=== PATIENT | male | born 1950 | race Caucasian/White ===

== ENCOUNTER 2018-01-29 09:28 | Outpatient (REF) | payer BC, SELFPAY ==
[2018-01-29 12:26] LABS: Cholesterol 136 mg/dL (50-200); HDL Cholesterol 59 mg/dL (40-60); LDL CHOLESTEROL 68 mg/dL (<100); Triglyceride 57 mg/dL (30-150)
[2018-01-30 12:04] LABS: Hepatitis C Ab w Rflx HCV PCR Negative (NEGAT)
== END 2018-01-29 09:48 ==
LOC: NCHCN 09:28
PROVIDERS: PCP Internal Medicine; Visit Provider Internal Medicine
DX: E78.5 Hyperlipidemia, unspecified (principal); Z11.59 Encounter for screening for other viral diseases
CPT/HCPCS: 80061; 83721; 86803

== ENCOUNTER 2019-10-06 10:59 | Outpatient (REF) | payer BC, SELFPAY ==
[2019-10-06 21:26] LABS: Anion Gap 10.8 mmol/L (3-11); BUN 14 mg/dL (7-18); CO2 26.2 mmol/L (21.0-32.0); CREATININE 0.87 mg/dL (0.70-1.30); Calcium 9.2 mg/dL (8.5-10.1); Calculated LDL 79 mg/dL (<100); Chloride 103 mmol/L (98-107); Cholesterol 144 mg/dL (<200); Glucose 102 mg/dL (74-106); HDL Cholesterol 50 mg/dL (40-60); Potassium 4.3 mmol/L (3.5-5.1); Sodium 140 mmol/L (136-145); Triglyceride 76 mg/dL (<150)
== END 2019-10-06 11:19 ==
LOC: NCHCN 10:59
PROVIDERS: PCP Internal Medicine; Visit Provider Internal Medicine
DX: E78.5 Hyperlipidemia, unspecified (principal); I10 Essential (primary) hypertension
CPT/HCPCS: 80048; 80061

== ENCOUNTER 2020-04-19 16:14 | Emergency (ER) | payer BC, SELFPAY ==
--- NOTE | 2020-04-19 16:15 | ED.GENADUL_ITS ---
Discharge Plan Disposition Patient Disposition: HOME Condition: Good Discharge Details Clinical Impression: Sensation of foreign body in esophagus Primary Care Provider: Bebeto Pineda ED Provider: Ann Marie Dasilva Home Meds and New Rx's Prescriptions: Continued lisinopril 5 MG tablet 5 mg PO DAILY RF: 0 rosuvastatin 10 mg tablet 10 mg PO DAILY RF: 0 Discharge Instructions Instructions: Esophageal Foreign Body (ED) Additional Instructions: Bone is not visualized on imaging today. This may be so small but are unable to visualize it. Alternatively, you may scratch the inside of your esophagus. General surgery would like you to gargle with salt water 5-6 times per day. They will also follow-up with you on at 3 PM to reassess. If in the interim you develop increased pain, inability to tolerate food or liquids, fever/chills or other new/worsening symptoms please seek care urgently once again. Referrals: Niharika Saenz DO [OSTEOPATHIC DOCTOR] - 04/21/20 3:00 pm Bebeto Pineda MD [Primary Care Provider] - Medical Decision Making Patient is a pleasant 61-year-old gentleman presenting today with chief complaint of esophageal foreign body. He reports that last night he was eating fish when he felt a bone get caught in his throat. States his been 24 hours since the onset of symptoms. States the symptoms have improved slightly since that time. He has been eating and drinking normally. States that he is been trying to have boluses of food as this was advised on the Internet including bread and marshmallows. States he does have some discomfort with swallowing but is able to do so without difficulty. Denies any shortness of breath or difficulty breathing. Has not had symptoms like this historically. On exam, patient appears nontoxic. He is notably hypertensive and tachycardic when he first came in, I believe that this is likely associate with anxiety based on the patient's exam. Handling secretions well. His lungs are clear. I not see any evidence of foreign body in the posterior oropharynx. Normal throat exam. Plan for x-ray as the patient reports that this was a piece of bone. However, like this is quite small given the type of fish. X-ray was reviewed by radiology. FINDINGS: Airway: There are multiple overlying shadows in the airway. It is difficult to rule out foreign body No abnormal narrowing. Soft tissues: Normal epiglottis. Bones/joints: Degenerative changes in the cervical spine IMPRESSION: There are multiple overlying shadows in the airway. It is difficult to rule out foreign body . Recommend CT soft tissue neck for further evaluation Consult with Dr. Lizama with general surgery. She advised that if the patient has been improving lately he has scratched his esophagus. She did review the images and also does not know any foreign body. She advised gargling with salt water 5-6 times per day. She schedule appointment for the patient on in follow-up. Discussed this plan with the patient who is in agreement. He was given strict return precautions. All of his questions and concerns were addressed with this plan. HPI General Mode of arrival: ambulatory . Date/Time Provider Initiated Documentation: 04/19/20 16:15 . Limitations to Documentation: no limitations . Information obtained by: patient and RN notes reviewed . History of Present Illness 69 year old M presents to the emergency department with the chief complaint of FB sensation in throat, described as mild, with intensity rated at 2. Quality is described as other (FB sensation), and is localized to the neck (left side of throat). Patient reports no radiation. Patient started experiencing this day(s) (1) and it has been constant. No relieving factors improve symptom(s), Eating worsens symptoms . Patient notes no other symptoms.. Patient did receive the following treatments prior to arrival, other (eating boluses of food) Related Data Home Medications Medication Instructions Recorded Confirmed lisinopril 5 mg PO DAILY tab-cap 02/03/15 04/19/20 rosuvastatin 10 mg PO DAILY 04/19/20 04/19/20 Allergies Allergy/AdvReac Type Severity Reaction Status Date / Time No Known Drug Allergies Allergy Unverified 04/19/20 16:19 Review of Systems Constitutional Constitutional: Reports as per HPI, Denies chills, Denies fever(s) and Denies headache(s) ENT Ears, Nose, Mouth, and Throat: Reports as per HPI and Denies headache(s) Cardiovascular Cardiovascular: Reports as per HPI, Denies chest pain and Denies dyspnea Respiratory Respiratory: Reports as per HPI, Denies cough, Denies hemoptysis, Denies dyspnea, Denies stridor and Denies wheezing Gastrointestinal Gastrointestinal: Reports as per HPI, Denies nausea and Denies vomiting Integumentary/Breasts Skin/Breast: Reports as per HPI and Denies rash Neurologic Neurologic: Reports as per HPI and Denies headache(s) Allergic/Immunologic Allergic/Immunologic: Denies wheezing [facility] Medical History (Updated 04/19/20 @ 17:29 by AVILA Quesada) Hypertension Surgical History Colonoscopy - IV Sedation (07/09/16) Social History Smoking/Tobacco Use Status: Current every day Tobacco Type: smokeless tobacco Smoking risk assessment performed?: Yes Drug use: Never Substance use type: does not use Exam Const General: cooperative, healthy appearing, comfortable, no acute distress, well developed and well groomed Nutritional Appearance: well nourished and overweight Orientation: alert and awake [facility] Head: normal to inspection, normocephalic and atraumatic General nose exam: external nose normal Face and sinus: normal facial exam, sinuses nontender and face symmetric Mouth: oral mucosae normal, lip normal, tongue normal, oropharynx normal and moist mucous membranes Teeth and gingiva: dentition normal Throat: posterior oropharynx normal, tonsils normal and uvula midline Eyes General: appearance normal, both eyes and all related structures Neck Neck: normal visual inspection, full ROM, no lymphadenopathy and no meningeal signs Resp Effort & Inspection: normal respiratory effort, able to speak in complete sentences and no respiratory distress Auscultation: clear to auscultation bilaterally, no rales, no rhonchi and no wheezes Cardio Rate: regular rate Rhythm: regular rhythm Heart Sounds: S1 normal and S2 normal Skin General skin exam: no rashes or lesions noted Neuro General: patient alert and patient awake Cognition: normal cognition Speech: speech normal Gait: normal gait Psych Appearance: grossly normal and well kempt Mental Status: mental status grossly normal Speech and Movement: speech and movement normal
[2020-04-19 16:16] VITALS: BP 155/99; PULSE 111; RESP 16; TEMP 36.3; O2SAT 98
--- NOTE | 2020-04-19 16:30 | DI.RAD_ITS ---
EXAM: XR SOFT TISSUE NECK CLINICAL HISTORY: bone stuck in throat x 24hrs. TECHNIQUE: 2D digital imaging was performed. COMPARISON: No exams were available for comparison FINDINGS: Prevertebral tissues are not swollen and there is no abnormal here-gas seen within the prevertebral s oft tissues.. Epiglottis is not swollen. There is no obvious radiopaque foreign body. Incidentally noted is multilevel degenerative disc dise ase and facet arthropathy. IMPRESSION: DATA REPOSITORY: RADIATION DOSE DELIVERED:
--- NOTE | 2020-04-19 17:14 | DI.VRAD_ITS ---
PROCEDURE INFORMATION: Exam: XR Soft Tissue Neck Exam date and time: 04/19/2020 5:02 PM Age: 69 years old Clinical indication: Other: Bone stuck in throat x 24hrs TECHNIQUE: Imaging protocol: XR of the soft tissues of the neck. COMPARISON: No relevant prior studies available. FINDINGS: Airway: There are multiple overlying shadows in the airway. It is difficult to rule out foreign body No abnormal narrowing. Soft tissues: Normal epiglottis. Bones/joints: Degenerative changes in the cervical spine IMPRESSION: There are multiple overlying shadows in the airway. It is difficult to rule out foreign body . Recommend CT soft tissue neck for further evaluation Dictated and Authenticated by: Collins Bolivar MD. Ordering:MICHELLE Jesus MD
== END 2020-04-19 17:32 | disposition home or self-care (01) ==
PROVIDERS: Emergency Provider Physician Assistant; PCP Internal Medicine
DX: R09.89 Other specified symptoms and signs involving the circulatory and respiratory systems (principal); I10 Essential (primary) hypertension
CPT/HCPCS: 99283; 70360

== ENCOUNTER 2020-07-04 16:51 | Outpatient (REF) | payer BC, SELFPAY ==
[2020-07-05 11:33] LABS: COVID-19 RT-PCR UVMMC Result Negative (Negative)
== END 2020-07-04 16:52 | disposition home or self-care (01) ==
LOC: NCHCN 16:51
PROVIDERS: PCP Internal Medicine; Visit Provider Internal Medicine
DX: Z20.822 Contact with and (suspected) exposure to COVID-19 (principal)
CPT/HCPCS: U0003

== ENCOUNTER 2020-10-17 10:23 | Outpatient (REF) | payer BC, SELFPAY ==
[2020-10-17 17:33] LABS: HCT 44.6 % (40.0-50.0); HGB 14.7 g/dL (13.5-17.5); MCH 30.7 pg (27.0-33.0); MCV 93.1 fL (80-95); MPV 10.8 fL (8.0-11.0); Platelet Count 224 10^3/uL (130-400); RBC 4.79 10^6/uL (4.36-5.78); RDW-SD 41.3 fL; WBC 4.42 10^3/uL (4.4-10.8)
[2020-10-17 17:41] LABS: Anion Gap 11.7 mmol/L (3-11); BUN 14 mg/dL (7-18); CO2 25.3 mmol/L (21.0-32.0); Chloride 105 mmol/L (98-107); Glucose 96 mg/dL (74-106); NT-proBNP 25 pg/mL (<300); Potassium 4.3 mmol/L (3.5-5.1); Sodium 142 mmol/L (136-145); TSH 0.88 uIU/mL (0.36-3.74)
== END 2020-10-17 10:24 | disposition home or self-care (01) ==
LOC: NCHCN 10:23
PROVIDERS: PCP Internal Medicine; Visit Provider Internal Medicine
DX: E66.9 Obesity, unspecified (principal); R00.2 Palpitations; I10 Essential (primary) hypertension; E78.5 Hyperlipidemia, unspecified; I35.8 Other nonrheumatic aortic valve disorders
CPT/HCPCS: 80048; 85027; 83880; 84443

== ENCOUNTER 2021-03-24 14:49 | Outpatient (REF) | payer BC, SELFPAY ==
[2021-03-25 17:18] LABS: COVID-19 RT-PCR UVMMC Result Negative (Negative)
== END 2021-03-24 14:50 | disposition home or self-care (01) ==
LOC: NCHCN 14:49
PROVIDERS: PCP Internal Medicine; Visit Provider Family Medicine
DX: Z20.822 Contact with and (suspected) exposure to COVID-19 (principal)
CPT/HCPCS: U0003

== ENCOUNTER 2021-10-23 16:02 | Outpatient (REF) | payer BC, SELFPAY ==
[2021-10-23 14:48] LABS: Anion Gap 8.6 mmol/L (3-11); BUN 15 mg/dL (7-18); CO2 28.4 mmol/L (21.0-32.0); CREATININE 0.9 mg/dL (0.70-1.30); Calcium 9.1 mg/dL (8.5-10.1); Chloride 101 mmol/L (98-107); Glucose 120 mg/dL (74-106); Potassium 4.3 mmol/L (3.5-5.1); Sodium 138 mmol/L (136-145)
== END 2021-10-23 16:03 | disposition home or self-care (01) ==
LOC: NCHCN 16:02
PROVIDERS: PCP Internal Medicine; Visit Provider Family Medicine
DX: I10 Essential (primary) hypertension (principal); E66.9 Obesity, unspecified
CPT/HCPCS: 80048

== ENCOUNTER 2022-11-13 09:21 | Outpatient (REF) | payer BC, SELFPAY ==
[2022-11-13 15:10] LABS: Anion Gap 11.2 mmol/L (3-11); BUN 11 mg/dL (7-18); CO2 25.8 mmol/L (21.0-32.0); CREATININE 0.9 mg/dL (0.70-1.30); Calculated LDL 156 mg/dL (<100); Chloride 102 mmol/L (98-107); Cholesterol 227 mg/dL (<200); Estimated GFR 91.31 (mL/min/1.73m2); Glucose 98 mg/dL (74-106); HDL Cholesterol 52 mg/dL (40-60); Potassium 4.1 mmol/L (3.5-5.1); Sodium 139 mmol/L (136-145); Triglyceride 97 mg/dL (<150)
== END 2022-11-13 09:22 | disposition home or self-care (01) ==
LOC: NCHCN 09:21
PROVIDERS: PCP Internal Medicine; Visit Provider Family Medicine
DX: I10 Essential (primary) hypertension (principal); E78.5 Hyperlipidemia, unspecified
CPT/HCPCS: 80048; 80061

== ENCOUNTER 2023-11-05 15:23 | Outpatient (REF) | payer BC, SELFPAY ==
[2023-11-05 15:16] LABS: Anion Gap 9.7 mmol/L (3-11); BUN 17 mg/dL (7-18); CO2 27.3 mmol/L (21.0-32.0); CREATININE 0.8 mg/dL (0.70-1.30); Calcium 9.5 mg/dL (8.5-10.1); Chloride 102 mmol/L (98-107); Estimated GFR 94.03 (mL/min/1.73m2); Glucose 101 mg/dL (74-106); Potassium 3.9 mmol/L (3.5-5.1); Sodium 139 mmol/L (136-145)
== END 2023-11-05 15:24 | disposition home or self-care (01) ==
LOC: NCHCN 15:23
PROVIDERS: PCP Family Medicine; Visit Provider Family Medicine
DX: I10 Essential (primary) hypertension (principal)
CPT/HCPCS: 80048